=== PATIENT | female | born 2000 | race Caucasian/White ===

== ENCOUNTER → 2023-07-08 15:12 | Outpatient (CLI) | payer OTHER, SELFPAY ==
[2023-07-08 18:13] LABS: Hepatitis B Surface Antigen NEGATIVE s/c (NEGATIVE)
[2023-07-08 18:31] LABS: HIV 1 & 2 Ab/Ag 4th Gen Combo NEGATIVE (NEGATIVE); Hep C Virus Ab w/Reflex Quant NEGATIVE s/c (NEGATIVE)
[2023-07-09 06:47] LABS: HSV 2 IGG AB < 0.91 index (0.00-0.90)
[2023-07-09 08:10] LABS: RPR Screen Non Reactive (Non Reactive)
== END ==
PROVIDERS: Referring Provider Physician Assistant Surgical; Visit Provider Physician Assistant Surgical
DX: R31.9 Hematuria, unspecified (principal); N89.8 Other specified noninflammatory disorders of vagina; Z72.51 High risk heterosexual behavior
CPT/HCPCS: 86592; 86695; 86696; 86803; 87086; 87147; 87210; 87340; 87389